=== PATIENT | female | born 1990 | race Caucasian/White ===

== ENCOUNTER → 2017-08-10 | Outpatient (CLI) | payer OTHER ==
--- NOTE | 2017-08-10 12:21 | REP ---
Clinical: Anatomical evaluation. Comparison: None available . Findings: Examination demonstrates a single live intrauterine in transverse (head to maternal right) presentation. motion is identified by technologist. Placenta is noted posteriorly and grade zero without evidence for placenta previa or abruption. Amniotic fluid volume is normal. Cervix measures 3.5 cm in length and appears closed. No evidence for nuchal cord. Gestational age by LMP 18 weeks 4 days with ELISA 01/07/2018 . Gestational age by current measurements 18 weeks 6 days with ELISA 01/05/2018 . FHR equals 153 beats per minute. BPD 4.3 cm 18 weeks 6 days HC 16.4 cm 19 weeks 1 day AC 13.3 cm 18 weeks 6 days FL 2.8 cm 18 weeks 4 days HL 2.8 cm 19 weeks 1 day HC/AC ratio 1.23 Estimated weight 256 grams ( 52nd percentile). Anatomical assessment demonstrates normal structures including cranium, choroid plexus, cavum, cerebellum/posterior fossa, facial features, lungs, four-chamber heart left ventricular outflow tract, diaphragm, stomach, cord insertion/three-vessel cord, kidneys/bladder, and extremities. Impression: Single live intrauterine in transverse lie demonstrating appropriate interval growth. Limited evaluation of the right cardiac ventricular outflow tract and spine may warrant reevaluation. Remainder of the anatomical assessment is complete and normal. Signed by Bhupinder Grady MD 08/10/2017 12:13 P
== END ==
LOC: M RAD 11:13
PROVIDERS: ATTEND Specialist
DX: Z34.82 Encounter for supervision of other normal pregnancy, second trimester (principal); Z3A.18 18 weeks gestation of pregnancy

== ENCOUNTER → 2017-10-27 | Outpatient (CLI) | payer OTHER ==
[2017-10-27 13:46] LABS: HEMATOCRIT 33.8 % (36.0-47.0); HEMOGLOBIN 11.3 g/dl (12.0-16.0); MEAN CORPUSCULAR HEMOGLOBIN 30.3 pg (27.0-33.0); MEAN CORPUSCULAR HGB CONC 33.4 g/dl (32.0-36.5); MEAN CORPUSCULAR VOLUME 90.6 fl (80.0-96.0); PLATELET COUNT, AUTOMATED 208 10^3/uL (150-450); RED BLOOD COUNT 3.73 10^6/uL (4.00-5.40); RED CELL DISTRIBUTION WIDTH 11.9 % (11.5-14.5); WHITE BLOOD COUNT 9.9 10^3/uL (4.0-10.0)
[2017-10-27 14:18] LABS: GLUCOSE CHALLENGE TEST 1 HOUR 99 MG/DL (LESS THAN 140)
[2017-10-28 08:57] LABS: TYPE AND SCREEN 1 1
== END ==
LOC: M SMT 10:39
DX: Z34.82 Encounter for supervision of other normal pregnancy, second trimester (principal)
CPT/HCPCS: 82950

== ENCOUNTER → 2017-12-07 | Outpatient (REF) | payer OTHER | LOC: M LAB REF 16:59 | DX: Z34.83 Encounter for supervision of other normal pregnancy, third trimester (principal) ==

== ENCOUNTER 2018-03-17 19:10 | Emergency (ER) | payer OTHER ==
[2018-03-17] MEDS: ACETAMINOPHEN 325 MG TAB PO (18:45)
== END 2018-03-17 19:14 | disposition home or self-care (01) ==
LOC: M ED 19:10
DX: S60.512A Abrasion of left hand, initial encounter (principal); S60.222A Contusion of left hand, initial encounter; V40.5XXA Car driver injured in collision with pedestrian or animal in traffic accident, initial encounter; Y92.411 Interstate highway as the place of occurrence of the external cause
CPT/HCPCS: 73130

== ENCOUNTER → 2018-12-26 | Outpatient (REF) | payer OTHER ==
[~2018-12-26] MED LIST: IBUP-1114 PO; MAPA500T2 PO; PRENTAB9 PO
== END ==
LOC: M SFHCLERA 10:59
PROVIDERS: ATTEND Physician Assistant
DX: J02.9 Acute pharyngitis, unspecified (principal)

== ENCOUNTER → 2019-05-24 | Outpatient (REF) | payer OTHER | LOC: M SFHCLERA 11:16 | PROVIDERS: ATTEND Nurse Practitioner Family | DX: J02.9 Acute pharyngitis, unspecified (principal) ==

== ENCOUNTER → 2019-06-13 | Outpatient (CLI) | payer OTHER ==
--- NOTE | 2019-06-13 10:45 | REP ---
DIAGNOSTIC MAMMOGRAM RIGHT BREAST WITH RIGHT BREAST ULTRASOUND: Multiple views of the right breast performed. Spot compression views are performed at the site of a palpable lump at the 6 o'clock position of the right breast. There is no family history of breast cancer. Tyrer-Cuzick lifetime risk of breast cancer 11.3%. Breast parenchyma is extremely dense limiting the sensitivity of the mammogram. No definite mass or clustered microcalcifications are seen on the mammogram. Real-time sonographic evaluation of the 6 o'clock region of the right breast at the site of the palpable lump demonstrates an oval solid mass which is mildly lobulated. It is wider than tall with mild distal acoustic shadowing. It measures 1.2 x 0.8 x 0.7 cm. IMPRESSION: BIRADS 4: BI-RADS/ACR category 4 mammogram. Suspicious Abnormality - biopsy should be considered. There is a solid mass seen sonographically at the site of the palpable lump, not seen mammographically. The mass measures 1.2 x 0.8 x 0.7 cm. Although this could represent at benign entity such as a fibroadenoma, I would recommend ultrasound guided biopsy. This mammogram was interpreted with the aid of an FDA-approved computer-aided detection system. The patient states he/she had a clinical breast exam in 05/2019. The patient letter being requested is M4. Electronically Signed by Rosendo Kim MD 06/13/2019 04:10 P
== END ==
LOC: M RAD 09:13
PROVIDERS: ATTEND Physician Assistant
DX: N64.4 Mastodynia (principal); N63.10 Unspecified lump in the right breast, unspecified quadrant

== ENCOUNTER → 2019-07-18 | Outpatient (REF) | payer OTHER | LOC: M LAB REF 19:49 | PROVIDERS: ATTEND Advanced Practice Midwife | DX: Z12.4 Encounter for screening for malignant neoplasm of cervix (principal) ==

== ENCOUNTER → 2019-10-10 | Outpatient (REF) | payer OTHER | LOC: M SFHCLERA 10:39 | PROVIDERS: ATTEND Physician Assistant | DX: J02.9 Acute pharyngitis, unspecified (principal) ==

== ENCOUNTER → 2019-10-14 | Outpatient (REF) | payer OTHER | LOC: M LAB REF 15:17 | PROVIDERS: ATTEND Physician Assistant | DX: J02.9 Acute pharyngitis, unspecified (principal) ==